=== PATIENT | male | born 1995 ===

== ENCOUNTER 2017-07-02 21:55 | Emergency (ER) | payer SELFPAY ==
[2017-07-02 22:03] VITALS: PULSE 66; TEMP 98
[2017-07-02] MEDS ORDERED: Lactated Ringer's 1,000 ML IV STA (23:02)
[2017-07-02 23:47] LABS: BASO % 0.4 % (0.0-2.0); EOS # 0.2 K/uL (0.0-0.7); EOS % 2.6 % (0.0-4.0); HEMATOCRIT 44.7 % (35.0-51.0); LYMPH # 1.3 K/uL (1.0-4.3); LYMPH % 19.4 % (20.0-40.0); MEAN CELL VOLUME 88.9 fL (80.0-94.0); MEAN CORPUSCULAR HEMOGLOBIN 30.3 pg (27.0-31.0); MEAN CORPUSCULAR HGB CONC 34.1 g/dL (33.0-37.0); MEAN PLATELET VOLUME 8.1 fL (7.2-11.7); MONO # 0.8 K/uL (0.0-0.8); MONO % 11.3 % (0.0-10.0); RED CELL DISTRIBUTION WIDTH 13.7 % (11.5-14.5); WHITE BLOOD COUNT 6.9 K/uL (4.8-10.8)
[2017-07-03] LABS: ALKALINE PHOSPHATASE 78 U/L (38-126); ALT/SGPT 49 U/L (21-72); AST/SGOT 42 U/L (17-59); BILIRUBIN,TOTAL 0.7 mg/dL (0.2-1.3); BLOOD UREA NITROGEN 14 mg/dL (9-20); CALCIUM 9.3 mg/dl (8.6-10.4); CARBON DIOXIDE 23 mmol/L (22-30); CHLORIDE 101 mmol/L (98-107); GFR AFRICAN-AMERICAN > 60; GLUCOSE,RANDOM 87 mg/dL (75-110); POTASSIUM 4.6 mmol/L (3.6-5.2); SODIUM 138 mmol/L (132-148); TOTAL PROTEIN 8.6 g/dL (6.3-8.3)
[2017-07-03 00:14] LABS: ALB/GLOB RATIO 1.3 (1.0-2.1)
[2017-07-03 00:47] VITALS: BP 110/64; RESP 16; O2SAT 97
--- NOTE | 2017-07-03 01:25 | C.PDOC ---
History Of Present Illness 22 year old male presents to the ER with a complaint of abdominal pain at surgical site for the past 4 days since getting his appendectomy. Patient is able to pass gas, denies nausea, vomiting, blood in stool, or fever. Time Seen by Provider: 07/02/17 22:57 Chief Complaint (Nursing): Abdominal Pain History Per: Patient History/Exam Limitations: no limitations Onset/Duration Of Symptoms: Days Current Symptoms Are (Timing): Still Present Location Of Pain/Discomfort: Other (Surgical site) Radiation Of Pain To:: None Quality Of Discomfort: Unable To Describe Associated Symptoms: denies: Fever, Chills, Nausea, Vomiting Exacerbating Factors: None Alleviating Factors: None Recent travel outside of the [place]: No Past Medical History Reviewed: Historical Data, Nursing Documentation, Vital Signs Vital Signs: Last Vital Signs Temp 98 F 07/02/17 21:57 Pulse 66 07/02/17 21:57 Resp 16 07/03/17 00:46 BP 110/64 07/03/17 00:46 Pulse Ox 97 07/03/17 01:26 - Medical History PMH: No Chronic Diseases Surgical History: Appendectomy - [facility] Procedures DRAINAGE OF PELVIC CAVITY, PERCUTANEOUS ENDOSCOPIC APPROACH (06/27/17) DRAINAGE OF PERITONEAL CAVITY, PERC ENDO APPROACH (06/27/17) INTRODUCTION OF SERUM/TOX/VACCINE INTO MUSCLE, PERC APPROACH (06/27/17) RESECTION OF APPENDIX, PERCUTANEOUS ENDOSCOPIC APPROACH (06/27/17) Family History: States: Unknown Family Hx - Social History Hx Alcohol Use: No Hx Substance Use: Yes - Immunization History Hx Tetanus Toxoid Vaccination: No Hx Influenza Vaccination: No Hx Pneumococcal Vaccination: No Review Of Systems Constitutional: Negative for: Fever, Chills Gastrointestinal: Positive for: Abdominal Pain. Negative for: Nausea, Vomiting , Diarrhea Physical Exam - Physical Exam Appears: Non-toxic, No Acute Distress Skin: Normal Color, Warm, Dry Head: Atraumatic, Normacephalic Eye(s): bilateral: Normal Inspection Oral Mucosa: Moist Chest: Symmetrical, No Tenderness Cardiovascular: Rhythm Regular Respiratory: Normal Breath Sounds, No Rales, No Rhonchi, No Wheezing Gastrointestinal/Abdominal: Bowel Sounds (Active), Soft, No Tenderness, Other ( Incision sites clean and dry) Neurological/Psych: Oriented x3, Normal Speech, Other (No focal deficits) ED Course And Treatment - Laboratory Results Result Diagrams: 07/02/17 23:44 07/02/17 23:44 O2 Sat by Pulse Oximetry: 97 (Room air) Pulse Ox Interpretation: Normal Progress Note: Blood work ordered. IV fluids administered. Disposition - Disposition Referrals: Kevyn Bruno MD [Staff Provider] - Disposition: HOME/ ROUTINE Disposition Time: 00:20 Condition: GOOD Additional Instructions: Thank you for letting us take care of you today. The emergency medical care you received today was directed at your acute symptoms. If you were prescribed any medication, please fill it and take as directed. It may take several days for your symptoms to resolve. Return to the Emergency Department if your symptoms worsen, do not improve, or if you have any other problems. Please contact your doctor or call one of the physicians/clinics you have been referred to that are listed on the Patient Visit Information form that is included in your discharge packet. Bring any paperwork you were given at discharge with you along with any medications you are taking to your follow up visit. Our treatment cannot replace ongoing medical care by a primary care provider (PCP) outside of the emergency department. Thank you for allowing the [facility] team to be part of your care today. Follow up with your surgeon as scheduled for re-evaluation and further management. Pablito por dejarnos atenderlo hoy. La atencin mdica de emergencia que recibi hoy estaba dirigida a melanie sntomas agudos. Si le prescribieron algn medicamento, llnelo y tome segn las indicaciones. Melanie sntomas pueden tardar varios isabel en resolverse. Regrese al Departamento de Emergencia si melanie s ntomas empeoran, no mejoran o si tiene algn otro problema. Comunquese con keith mdico o llame a isaiah de los mdicos / clnicas a los que lawrence sido referido que figura en el formulario de Informacin de visita del paciente que se incluye en keith paquete de lily. Traiga todos los documentos que recibi al momento del lily junto con los medicamentos que est tomando en keith visita de seguimiento. Nuestro tratamiento no puede reemplazar la atencin mdica en curso por parte de un proveedor de atencin primaria (PCP) fuera del departamento de emergencias. Pablito por permitir que el equipo de [facility] sea parte de keith cuidado hoy. Magaly un seguimiento con keith cirujano segn lo programado para alice reevaluacin y administracin adicional. Instructions: Abdominal Pain (ED) Forms: Gen Discharge Inst Vietnamese Print Language: BELARUSIAN - Clinical Impression Clinical Impression: Abdominal pain - Scribe Statement The provider has reviewed the documentation as recorded by the Scribe Vasquez Cárdenas All medical record entries made by the Scribe were at my direction and personally dictated by me. I have reviewed the chart and agree that the record accurately reflects my personal performance of the history, physical exam, medical decision making, and the department course for this patient. I have also personally directed, reviewed, and agree with the discharge instructions and disposition.
--- NOTE | 2017-07-04 23:21 | CARD ---
APPROVED REPORT EKG Measurement Heart [id number] <Conclusion> Normal sinus rhythm Possible Left atrial enlargement Borderline ECG
== END 2017-07-03 00:46 | disposition home or self-care (01) ==
LOC: C.ER 21:55
DX: R10.9 Unspecified abdominal pain (principal)
CPT/HCPCS: 80053; 83690; 85025; 93005; 96360; 96361; 99284; J7120